=== PATIENT | female | born 1960 | race Hispanic/Latino ===

== ENCOUNTER 2021-08-07 11:00 | Emergency (ER) | payer BC, OTHER ==
--- OUTSIDE RECORDS SUMMARY | 2021-08-07 11:04 | XMS REPORT | Continuity of Care Document ---
:[address] [facility] t Address [address] [place] [address] Care Team Providers Name Role Phone Ayaka Dez PIMENTEL S Attending Clinician Vikas OSEI, L Attending Clinician Kalin Anguiano Attending Clinician Unavailable Davy OSEI, C Attending Clinician Lori BHATTI Attending Clinician Unavailable Doctor Unassigned, Name Attending Clinician Unavailable Physician, Primary or Family Admitting Clinician Unavailabl e Payers Payer Name Policy Type Policy Number Effective Date Expiration Date S [facility] [id number] 2012 00:00:00 Problems Condition Condition Condition Status Onset Resolution Last Treating Co mments Source Name Details Category Date Date Treatment Clinician Date No known No known Disease Unive rs active active ity of problems problems [facility] Allergies, Adverse Reactions, Alerts Allergy Allergy Status Severity Reaction(s) Onset Inactive Treating Comm ents Source Name Type Date Date Clinician No Known DA Active U 1997-09 [facility] 10[facility]02 [place] [facility] 00:00: d [address] NO KNOWN Drug Active [facility] ALLERGIE Class [facility] [place] [facility] Social History Social Habit Start Date Stop Date Quantity Comments Source Tobacco use and 2017-10-12 2017-10-12 Never used [facility] exposure 00:00:00 00:00:00 Medical Branch Sex [birth year] [facility] 00:00:00 00:00:00 Medical Branch Smoking Status Start Date Stop Date Source Never smoker [facility] Medications Ordered Filled Start Stop Current Ordering Indication Dosage Frequency Signature Comments Components Source Medication Medication Date Date Medication? Clinician (SIG) Name Name diclofenac 2021- No [id number] 75mg Take 1 Univers 75 mg EC 5-11 06-11 tablet by ity o f tablet 00:00: 04:59 mouth 2 00 :00 (two) Medical times Branch daily with meals for 30 days. diclofenac Yes 75mg Take 1 Unive rs 75 mg EC 3-11 tablet by ity of tablet 00:00: mouth 2 (two) Medical times Branch daily with meals. diclofenac Yes 75mg Take 1 Unive rs 75 mg EC 3-11 tablet by ity of tablet 00:00: mouth 2 (two) Medical times Branch daily with meals. diclofenac 2019- Yes 75mg Take 1 Unive rs 75 mg EC 2-31 tablet by ity of tablet 00:00: mouth (two) Medical times Branch daily with meals. diclofenac 2019- Yes 75mg Take 1 Unive rs 75 mg EC 2-31 tablet by ity of tablet 00:00: mouth (two) Medical times Branch daily with meals. diclofenac 2020-1 Yes 75mg Take 1 Unive rs 75 mg EC 2-31 tablet by ity of tablet 00:00: mouth 2 (two) Medical times Branch daily with meals. diclofenac 2020-1 Yes 75mg Take 1 Unive rs 75 mg EC 1-02 tablet by ity of tablet 00:00: mouth 2 (two) Medical times Branch daily with meals. diclofenac 2020-1 Yes 75mg Take 1 Unive rs 75 mg EC 1-02 tablet by ity of tablet 00:00: mouth 2 (two) Medical times Branch daily with meals. diclofenac 2020-1 Yes 75mg Take 1 Unive rs 75 mg EC 1-02 tablet by ity of tablet 00:00: mouth 2 (two) Medical times Branch daily with meals. diclofenac 2020-1 Yes 75mg Take 1 Unive rs 75 mg EC 1-02 tablet by ity of tablet 00:00: mouth (two) Medical times Branch daily with meals. diclofenac 2020-0 Yes [id number] 75mg Take 1 Univers 75 mg EC 8-25 tablet by ity of tablet 00:00: mouth (two) Medical times Branch daily with meals. diclofenac 2020-0 Yes [id number] 75mg Take 1 Univers 75 mg EC 8-25 tablet by ity of tablet 00:00: mouth (two) Medical times Branch daily with meals. diclofenac 2020-0 Yes [id number] 75mg Take 1 Univers 75 mg EC 8-25 tablet by ity of tablet 00:00: mouth (two) Medical times Branch daily with meals. diclofenac 2020-0 Yes [id number] 75mg Take 1 Univers 75 mg EC 8-25 tablet by ity of tablet 00:00: mouth (two) Medical times Branch daily with meals. diclofenac 2020-0 Yes [id number] 75mg Take 1 Univers 75 mg EC 8-25 tablet by ity of tablet 00:00: mouth (two) Medical times Branch daily with meals. diclofenac 2020-0 Yes [id number] 75mg Take 1 Univers 75 mg EC 6-05 tablet by ity of tablet 00:00: mouth (two) Medical times Branch daily with meals. diclofenac 2020-0 2020- No [id number] 75mg Take 1 Univers 75 mg EC 6-05 08-25 tablet by ity o f tablet 00:00: 00:00 mouth 00 :00 (two) Medical times Branch daily with meals. diclofenac 2020-0 Yes 75mg Take 1 Unive rs 75 mg EC 4-01 tablet by ity of tablet 00:00: mouth (two) Medical times Branch daily with meals. diclofenac 2020-0 Yes 75mg Take 1 Unive rs 75 mg EC 4-01 tablet by ity of tablet 00:00: mouth (two) Medical times Branch daily with meals. diclofenac 2020-0 Yes 75mg Take 1 Unive rs 75 mg EC 4-01 tablet by ity of tablet 00:00: mouth (two) Medical times Branch daily with meals. diclofenac 2020-0 Yes 75mg Take 1 Unive rs 75 mg EC 4-01 tablet by ity of tablet 00:00: mouth 2 00 (two) Medical times Branch daily with meals. diclofenac 2020-0 Yes 75mg Take 1 Unive rs 75 mg EC 4-01 tablet by ity of tablet 00:00: mouth 2 00 (two) Medical times Branch daily with meals. diclofenac 2020-0 Yes 75mg Take 1 Unive rs 75 mg EC 4-01 tablet by ity of tablet 00:00: mouth 2 00 (two) Medical times Branch daily with meals. diclofenac 2020-0 Yes 75mg Take 1 Unive rs 75 mg EC 4-01 tablet by ity of tablet 00:00: mouth 2 00 (two) Medical times Branch daily with meals. diclofenac 2020-0 Yes [id number] 75mg Take 1 Univers 75 mg EC 1-28 tablet by ity of tablet 00:00: mouth (two) Medical times Branch daily with meals. diclofenac 2020-0 Yes [id number] 75mg Take 1 Univers 75 mg EC 1-28 tablet by ity of tablet 00:00: mouth (two) Medical times Branch daily with meals. diclofenac 2020-0 Yes [id number] 75mg Take 1 Univers 75 mg EC 1-28 tablet by ity of tablet 00:00: mouth (two) Medical times Branch daily with meals. diclofenac 2020-0 2020- No [id number] 75mg Take 1 Univers 75 mg EC 1-28 06-05 tablet by ity o f tablet 00:00: 00:00 mouth 2 [place] 00 :00 (two) Medical times Branch daily with meals. meloxicam 2017-0 Yes 7.5mg Take 1 Unive rs 7.5 mg 8-23 tablet by ity of tablet 00:00: mouth [place] 00 daily. Medical Branch meloxicam 2017-0 Yes 7.5mg Take 1 Unive rs 7.5 mg 8-23 tablet by ity of tablet 00:00: mouth [place] 00 daily. Medical Branch meloxicam 2017-0 Yes 7.5mg Take 1 Unive rs 7.5 mg 8-23 tablet by ity of tablet 00:00: mouth [place] 00 daily. Medical Branch meloxicam 2017-0 Yes 7.5mg Take 1 Unive rs 7.5 mg 8-23 tablet by ity of tablet 00:00: mouth [place] 00 daily. Medical Branch meloxicam 0 Yes 7.5mg Take 1 Unive rs 7.5 mg 8-23 tablet by ity of tablet 00:00: mouth [place] 00 daily. [facility] meloxicam Yes 7.5mg Take 1 Unive rs 7.5 mg 8-23 tablet by ity of tablet 00:00: mouth [place] 00 daily. [facility] meloxicam Yes 7.5mg Take 1 Unive rs 7.5 mg 8-23 tablet by ity of tablet 00:00: mouth [place] 00 daily. [facility] meloxicam 0 Yes 7.5mg Take 1 Unive rs 7.5 mg 8-23 tablet by ity of tablet 00:00: mouth [place] 00 daily. [facility] meloxicam 20170 Yes 7.5mg Take 1 Unive rs 7.5 mg 8-23 tablet by ity of tablet 00:00: mouth [place] 00 daily. [facility] Immunizations Ordered Filled Immunization Date Status Comments Sour e Immunization Name Name SARS-COV-2 COVID-19 2020-12-01 Completed Unive rsity of PFIZER VACCINE 00:00:00 [facility] SARS-COV-2 COVID-19 2020-11-10 Completed Unive rsity of PFIZER VACCINE 00:00:00 [facility] SARS-COV-2 COVID-19 2020-11-10 Completed Unive rsity of PFIZER VACCINE 00:00:00 [facility] Procedures Procedure Date / Time Performed Performing Clinician Sourlori e US ABDOMEN LIMITED 2019-11-10 23:09:31 Natan Bhatti versity of [facility] ASSIGNMENT OF BENEFITS 2019-11-10 22:34:17 Doctor Unassigned, No [facility] Name [facility] Encounters Start End Encounter Admission Attending Care Care Encounter Source Date/Time Date/Time Type Type Clinicians Facility Department ID 2021-01-22 2021-01-22 Telephone Ayaka MEKEN [id number] Univers 00:00:00 00:00:00 [facility] [employer] 350.1.13.10 it y of Surgical 4.2.7.2.686 [place] as Specialti [id number] Dc dical [address] 2020-12-01 2020-12-01 Outpatient [facility] [id number] Univers 09:10:00 09:10:00 ity of [facility] 2020-11-20 2020-11-20 [facility] [id number] Univers 00:00:00 00:00:00 [facility] 350.1.13.10 it y of Surgical 4.2.7.2.686 [place]ric as Specialti [id number] Dc dical es [address] [facility] 2020-11-10 2020-11-10 Outpatient [facility] [id number] Univers 09:15:00 09:15:00 ity of [facility] 2020-09-11 2020-09-11 [facility] [facility] [id number] Univers 00:00:00 00:00:00 Yury Blunt 350.1.13.10 i [place] [id number] Dc dical nal 198 [facility] 2020-07-06 2020-07-06 [facility] [id number] Univers 00:00:00 00:00:00 [facility] 350.1.13.10 it y of Surgical 4.2.7.2.686 [place] Specialti [phone] Dc dical es 198 [facility] 2020-05-07 2020-05-07 Telephone [facility] [id number] Univers 00:00:00 00:00:00 [facility] 350.1.13.10 it y of Surgical 4.2.7.2.686 [place] Specialti [id number] Dc dical es 198 [facility] 2020-03-15 2020-03-[address] [facility] LESLY [id number] [facility] 12:00:00 12:00:00 [facility] 2020-02-16 2020-02-16 [facility] [id number] 00:00:00 00:00:00 [facility] 350.1.13.10 Surgical 4.2.7.2.686 Specialti [id number] es 198 [place] 2020-02-16 2020-02-16 [facility] [id number] Univers 00:00:00 00:00:00 [facility] 350.1.13.10 it y of Surgical 4.2.7.2.686 [place] as Specialti [phone] Me dical es 198 [facility] 2019-12-14 2019-12-14 Telephone [facility] [id number] 00:00:00 00:00:00 [facility] 350.1.13.10 Surgical 4.2.7.2.686 Specialti [id number] es 198 [place] 2019-12-14 2019-12-14 Telephone [facility] [id number] Univers 00:00:00 00:00:00 [facility] 350.1.13.10 it y of Surgical 4.2.7.2.686 [place] as Specialti [id number] Dc dical es 198 [facility] 2019-11-10 2019-11-10 [facility] [id number] 16:43:00 23:59:00 Encounter Natan de santiago 350.1.13.10 [place] 4.2.7.2.686 [place] [id number] [facility] 2019-11-10 2019-11-10 [facility] [id number] Univers 16:43:00 23:59:00 Encounter Natan de santiago 350.1.13.10 ity [place] [id number] [address] 2019-11-10 2019-11-10 Outpatient R [facility] [id number] Univers 00:00:00 00:00:00 NATAN De Santiago [id number] alf villagomez [facility] 2019-11-10 2019-11-10 Outpatient R [facility] [id number] Univers 00:00:00 00:00:00 NATAN De Santiago [facility] 2019-11-10 2019-11-10 Orders Doctor LUISA [id number].[id number] 00:00:00 00:00:00 Only Unassigned, GUTIERREZ 350.1.13.10 [employer] [facility] 4.2.7.2.686 [id number] 2019-11-10 2019-11-10 Orders Doctor LUISA [id number].[id number] [id number] Univers 00:00:00 00:00:00 Only Unassigned, GUTIERREZ 350.1.13.10 ity of [employer] [facility] 4.2.7.2.686 Cedric as [id number] [address] Results Test Test Test Results Result Source Description Time Comments Comments US ABDOMEN Normal study. [facility] 28 Preliminary Report [facility] 01:06:58 Dictated by Resident: Edwin Garcia MD., have reviewed this study and agree with the abovereport.RIGHT UPPER QUADRANT ULTRASOUND HISTORY: Right Upper Quadrant Pain COMPARISON: None. TECHNIQUE: Transabdominal grayscale and color Doppler ultrasoundexamination of the abdomen with emphasis on the liver, gallbladder, andspleen was performed. Cine clips were then generated. FINDINGS: LIVER: Appearance within normal limits. No focal hepatic lesion. ?Normalhepatopetal ?flow within the main portal vein. GALLBLADDER: No cholelithiasis, pericholecystic fluid, or gallbladderdistention. No sonographic Laurent's sign. The common bile duct measures 4mm. PANCREAS: Incompletely visualized due to overlying bowel gas. RIGHT KIDNEY: The visualized portion of the right kidney is unremarkable. [facility], Radiant Results Inft User - 11/10/2019 7:08 PM CSTRIGHT UPPER QUADRANT ULTRASOUND HISTORY: Right Upper Quadrant Pain COMPARISON: None.TECHNIQUE: Transabdominal grayscale and color Doppler ultrasoundexamination of the abdomen with emphasis on the liver, gallbladder, andspleen was performed. Cine clips were then generated.FINDINGS: LIVER: Appearance within normal limits. No focal hepatic lesion. Normalhepatopetal flow within the main portal vein. GALLBLADDER: No cholelithiasis, pericholecystic fluid, or gallbladderdistention. No sonographic Laurent's sign. The common bile duct measures 4mm.PANCREAS: Incompletely visualized due to overlying bowel gas.RIGHT KIDNEY: The visualized portion of the right kidney is unremarkable.IMPRESSIONNo rmal study. Preliminary Report Dictated by Resident: Edwin Yang MD., have reviewed this study and agree with the abovereport.
[2021-08-07 11:51] LABS: Absolute Lymphocytes (CBC) 2.1 K/uL (0.7-4.9); Basophils % 0.6 % (0-1.3); Hematocrit 28.7 % (36.0-45.0); Lymphocytes % 19.5 % (15.3-44.8); MPV 8.2 fL (7.6-11.3)
[2021-08-07] MEDS ORDERED: DIPHENOX/ATROP SULF 1 TAB PO ONE (12:05)
[2021-08-07] MEDS ORDERED: NA CHLORIDE 0.9% 1,000 ML ONE (12:06)
[2021-08-07] MEDS ORDERED: ONDANSETRON 4 MG/2 ML VIAL ONE (12:06)
[2021-08-07 12:08] LABS: Albumin 2.9 g/dL (3.4-5.0); Bilirubin Direct 0.2 mg/dL (0-0.2); Bilirubin Total 0.6 mg/dL (0.2-1.0); Potassium 3.3 mmol/L (3.5-5.1); Protein, Total 7.4 g/dL (6.4-8.2)
--- NOTE | 2021-08-07 12:45 | RAD REPORT ---
EXAM DESCRIPTION: CT - Abdomen Pelvis Wo Contrast - 08/07/2021 12:36 pm CLINICAL HISTORY: Abdominal pain. diarrhea;Abd pain;Nausea / vomiting COMPARISON: No comparisons TECHNIQUE: CT imaging of the abdomen and pelvis was performed without contrast. Solid organ, bowel a nd vascular assessment is limited due to lack of IV and oral contrast. All CT scans are performed using dose optimization technique as appropriate and may include automated exposure control or mA/KV adjustment according to patient size. FINDINGS: The lower lung trujillo are clear. The liver, spleen, pancreas, adrenal glands and kidneys are within normal limits for a limited non-co ntrast examination. No bowel obstruction, free air, free fluid or abscess. Small fat containing umbilical hernia. The angela endix is normal. Mild multilevel lumbar degenerative changes.Fibroid uterus. IMPRESSION: No acute intra-abdominal or pelvic findings. Fibroid uterus. A limited non-contrast examination was performed as detailed.
--- NOTE | 2021-08-07 13:36 | ER ---
Nurse's Notes [facility] Name: Hali Connell Age: 61 yrs Sex: Female : 1960 Arrival Date: 08/07/2021 Time: 11:04 Bed 16 Private MD: Diagnosis: Abdominal pain, unspecified;Vomiting, unspecified;Diarrhea, unspecified Presentation: 08/07 11:12 Chief complaint: Patient states: Abd pain with N/V/D for 2 weeks. Hemoriod pain also. ll1 Coronavirus screen: Vaccine status: Patient reports receiving the 2nd dose of the covid vaccine. Client denies travel out of the [place] in the last 14 days. diarrhea, fatigue, nausea, vomiting. Client presents with at least one sign or symptom that may indicate coronavirus-19. Standard/surgical mask placed on the client. Ebola Screen: Patient denies travel to an Ebola-affected area in the 21 days before illness onset. Initial Sepsis Screen: Does the patient meet any 2 criteria? RR > 20 per min. HR > 90 bpm. Yes Does the patient have a suspected source of infection? Yes: Acute abdominal pain. Risk Assessment: Do you want to hurt yourself or someone else? Patient reports no desire to harm self or others. Onset of symptoms was July 24, 2021. 11:12 Method Of Arrival: [facility]ulatory [facility] 11:12 Acuity: RUPA 3 ll1 Triage Assessment: 12:41 General: Appears in no apparent distress. Behavior is calm, cooperative, appropriate sm5 for age. Pain: Complains of pain in chest Pain currently is 2 out of 10 on a pain scale. Neuro: Level of Consciousness is awake, alert, obeys commands, Oriented to person, place, time, situation. Cardiovascular: Reports chest pain. Respiratory: Reports nasal congestion. GI: No deficits noted. Historical: - Allergies: 11:11 No Known Allergies; ll1 - PMHx: 11:11 Hypertensive disorder; hernia/ulcers; Anemia; ll1 - PSHx: 11:11 Tonsillectomy; tubal ligation; ll1 - Immunization history:: Client reports receiving the 2nd dose of the Covid vaccine. - Social history:: Smoking status: Patient denies any tobacco usage or history of. - Family history:: not pertinent. - Hospitalizations: : No recent hospitalization is reported. Screenin:38 Abuse screen: Denies threats or abuse. Denies injuries from another. Nutritional sm5 screening: No deficits noted. Tuberculosis screening: No symptoms or risk factors identified. Fall Risk No fall in past 12 months (0 pts). No secondary diagnosis (0 pts). IV access (20 points). Ambulatory Aid- None/Bed Rest/Nurse Assist (0 pts). Gait- Normal/Bed Rest/Wheelchair (0 pts) Mental Status- Oriented to own ability (0 pts). Total Canela Fall Scale indicates No Risk (0-24 pts). Vital Signs: 11:12 BP 107 / 62; Pulse 101; Resp 22; Temp 97.8; Pulse Ox 97% ; Weight 102.06 kg; Height 5 ll1 ft. 4 in. (162.56 cm); Pain 7/10; 14:22 BP 110 / 67; Pulse 87; Resp 19; Pulse Ox 97% ; sm5 11:12 Body Mass Index 38.62 (102.06 kg, 162.56 cm) ll1 ED Course: 11:04 Patient arrived in ED. ds1 11:11 Arm band placed on Patient placed in an exam room, on a stretcher. ll1 11:13 Delbert Perez MD is Attending Physician. rn 11:14 Triage completed. ll1 11:17 Ny Manzo, RN is Primary Nurse. sm5 11:41 Inserted saline lock: 20 gauge in left antecubital area, using aseptic technique. lt3 11:52 Patient has correct armband on for positive identification. Placed in gown. Bed in low mh5 position. Call light in reach. Side rails up X 1. Adult w/ patient. Door closed. Noise minimized. Warm blanket given. SOCKS. Pulse ox on. NIBP on. 11:53 Initial lab(s) drawn, by ED staff, sent to lab. mh5 12:36 Abdomen In Process Unspecified. EDMS 14:21 No provider procedures requiring assistance completed. sm5 14:21 IV discontinued, intact, bleeding controlled, No redness/swelling at site. sm5 Administered Medications: 12:12 Drug: Zofran (Ondansetron) 4 mg Route: IVP; Site: left antecubital; sm5 12:13 Drug: LoMOTIL (diphenoxylate-atropine) 2 tabs Route: PO; sm5 12:14 Drug: NS 0.9% 1000 ml Route: IV; Rate: 1000 ml; Site: left antecubital; [facility] Outcome: 13:36 Discharge ordered by . rn 14:21 Discharged to home ambulatory, with family. [facility] 14:21 Condition: stable 14:21 Condition: good 14:21 Discharge instructions given to patient, family, Instructed on discharge instructions, Prescriptions given X 1. 14:22 Patient left the ED. [facility] Signatures: Dispatcher [employer] [facility] Anita Cummings dsDelbert Chacon MD MD rn Martinez, Maria mh5 Lewis, Lynsay, RN RN ll1 Ny Manzo RN RN sm5 Marybeth Gudino 3
--- NOTE | 2021-08-07 13:36 | EDPHYS ---
Physician Documentation [facility] Name: Hali Connell Age: 61 yrs Sex: Female : 1960 Arrival Date: 08/07/2021 Time: 11:04 Bed 16 Private MD: ED Physician Delbert Perez HPI: 08/07 11:29 This 61 yrs old Female presents to ER via Ambulatory with complaints of rn vomitin, Diarrhea, Abdominal Pain. 11:29 The patient presents to the emergency department with nausea, vomiting, diarrhea, rn abdominal pain. Onset: The symptoms/episode began/occurred 2 week(s) ago. Possible causes: sick contacts, by family, . The symptoms are aggravated by food , The symptoms are alleviated by nothing. Associated signs and symptoms: Pertinent positives: abdominal pain, diarrhea, nausea, vomiting, Pertinent negatives: fever. Severity of symptoms: At their worst the symptoms were moderate in the emergency department the symptoms are unchanged. The patient has not experienced similar symptoms in the past. The patient has not recently seen a physician. Patient reports 2 weeks of abdominal pain, cramping, nausea/vomiting/diarrhea. Fever at onset. with identical symptoms but he improved. They were seen and was Covid negative at the beginning of this illness and diagnosed with viral syndrome. Denies any blood in emesis but does report hemorrhoids are acting up and has red blood with bowel movements and pain at hemorrhoids.. Historical: - Allergies: 11:11 No Known Allergies; ll1 - PMHx: 11:11 Hypertensive disorder; hernia/ulcers; Anemia; ll1 - PSHx: 11:11 Tonsillectomy; tubal ligation; ll1 - Immunization history:: Client reports receiving the 2nd dose of the Covid vaccine. - Social history:: Smoking status: Patient denies any tobacco usage or history of. - Family history:: not pertinent. - Hospitalizations: : No recent hospitalization is reported. ROS: 11:29 Constitutional: Negative for fever, chills, and weight loss, Eyes: Negative for injury, rn pain, redness, and discharge, Neck: Negative for injury, pain, and swelling, Cardiovascular: Negative for chest pain, palpitations, and edema, Respiratory: Negative for shortness of breath, cough, wheezing, and pleuritic chest pain, Abdomen/GI: Positive for abdominal pain/nausea/vomiting/diarrhea Back: Negative for injury and pain, MS/Extremity: Negative for injury and deformity, Skin: Negative for injury, rash, and discoloration, Neuro: Negative for headache, numbness, tingling, and seizure. Exam: 11:29 Constitutional: This is a well developed, well nourished patient who is awake, alert, rn and in no acute distress. Ambulatory to room without difficulty or requiring assistance Head/Face: Normocephalic, atraumatic. Eyes: Pupils equal round and reactive to light, extra-ocular motions intact. Lids and lashes normal. Conjunctiva and sclera are non-icteric and not injected. Cornea within normal limits. Periorbital areas with no swelling, redness, or edema. ENT: Dry mucous membranes, no stridor Cardiovascular: Tachycardic, regular. No pulse deficits Respiratory: No increased work of breathing, no retractions or nasal flaring. Abdomen/GI: Soft, nontender, no masses, no distention, no peritoneal signs Skin: Warm, dry MS/ Extremity: Pulses equal, no cyanosis. Neurovascular intact. Full, normal range of motion. Equal circumference. Neuro: Awake and alert, GCS 15, oriented to person, place, time, and situation. Cranial nerves II-XII grossly intact. Motor strength 5/5 in all extremities. Sensory grossly intact. Cerebellar exam normal. Normal gait. Vital Signs: 11:12 BP 107 / 62; Pulse 101; Resp 22; Temp 97.8; Pulse Ox 97% ; Weight 102.06 kg; Height 5 ll1 ft. 4 in. (162.56 cm); Pain 7/10; 14:22 BP 110 / 67; Pulse 87; Resp 19; Pulse Ox 97% ; sm5 11:12 Body Mass Index 38.62 (102.06 kg, 162.56 cm) ll1 MDM: 11:13 Patient medically screened. rn 12:20 ED course: Patient states told this week that her hemoglobin was 9 and was being rn scheduled for iron infusion. Reports chronic anemia.. 13:34 Differential diagnosis: Nonspecific abd pain, gastritis, pancreatitis, appendicitis, rn diverticulitis, viral gastroenteritis, gastroenteritis. Data reviewed: vital signs, nurses notes, lab test result(s), radiologic studies, CT scan, and as a result, I will discharge patient. Counseling: I had a detailed discussion with the patient and/or guardian regarding: the historical points, exam findings, and any diagnostic results supporting the discharge/admit diagnosis, lab results, radiology results, the need for outpatient follow up, to return to the emergency department if symptoms worsen or persist or if there are any questions or concerns that arise at home. Response to treatment: the patient's symptoms have markedly improved after treatment, and as a result, I will discharge patient. Special discussion: Based on the patient's Hx, exam, and Dx evaluation, there is no indication for emergent surgery or inpatient Tx. It is understood by the patient/guardian that if the Sx's persist or worsen they need to return immediately for re-evaluation. I discussed with the patient/guardian in detail that at this point there is no indication for admission to the hospital. It is understood, however, that if the symptoms persist or worsen the patient needs to return immediately for re-evaluation. ED course: Patient improved, tolerates p.o. No acute findings on CT abdomen pelvis. Will DC home with as needed Zofran and return precautions.. 08/07 11:26 Order name: Basic Metabolic Panel; Complete Time: 12:20 rn 08/07 11:26 Order name: CBC with Diff; Complete Time: 12:20 rn 08/07 11:26 Order name: Hepatic Function; Complete Time: 12:20 rn 08/07 11:26 Order name: Lipase; Complete Time: 12:20 rn 08/07 12:21 Order name: Abdomen ; Complete Time: 12:49 EDMS 08/07 11:26 Order name: IV Saline Lock; Complete Time: 11:42 rn 08/07 11:26 Order name: Labs collected and sent; Complete Time: 11:42 rn 08/07 12:57 Order name: PO challenge; Complete Time: 13:48 rn Administered Medications: 12:12 Drug: Zofran (Ondansetron) 4 mg Route: IVP; Site: left antecubital; sm5 12:13 Drug: LoMOTIL (diphenoxylate-atropine) 2 tabs Route: PO; sm5 12:14 Drug: NS 0.9% 1000 ml Route: IV; Rate: 1000 ml; Site: left antecubital; sm5 Disposition Summary: 08/07/21 13:36 Discharge Ordered Location: Home rn Problem: new rn Symptoms: have improved rn Condition: Stable rn Diagnosis - Abdominal pain, unspecified rn - Vomiting, unspecified rn - Diarrhea, unspecified rn Followup: rn - With: Private Physician - When: As needed - Reason: Recheck today's complaints, Re-evaluation by your physician Discharge Instructions: - Discharge Summary Sheet rn - Abdominal Pain, Adult rn - Diarrhea, Adult rn - Nausea and Vomiting, Adult rn Forms: - Medication Reconciliation Form rn - Thank You Letter 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 EDMS EDMS
[2021-08-07 14:30] VITALS: TEMP 97.8; O2SAT 97
[2021-08-07 14:31] VITALS: BP 110/67
== END 2021-08-07 14:22 | disposition home or self-care (01) ==
LOC: ER 11:00
DX: R19.7 Diarrhea, unspecified (principal); R10.9 Unspecified abdominal pain; I10 Essential (primary) hypertension
CPT/HCPCS: 85025; 80048; 36415; 80076; 83690; 74176; 96374; 99284; J7030; J2405